=== PATIENT | male | born 1965 | race Caucasian/White ===

== ENCOUNTER → 2017-08-04 18:08 | Outpatient (CLI) | payer SELFPAY | PROVIDERS: PCP Nurse Practitioner Family; Visit Provider Nurse Practitioner Family | DX: Z02.4 Encounter for examination for driving license (principal) ==

== ENCOUNTER → 2019-03-18 10:46 | Outpatient (CLI) | payer SELFPAY | PROVIDERS: Visit Provider Nurse Practitioner Family | DX: Z02.4 Encounter for examination for driving license (principal) ==

== ENCOUNTER 2019-11-19 13:58 | Emergency (ER) | payer OTHER, SELFPAY ==
[2019-11-19 14:19] VITALS: BP 168/112; PULSE 101; RESP 20; TEMP 36.8; O2SAT 97; BMI 35.2
--- NOTE | 2019-11-19 14:26 | HMH.EDUTC ---
[facility] [place] Disposition Condition on Discharge: Good Time of Disposition: 14:38 <Carla Garcia - Last Filed: 11/19/19 15:50> <Owen Brian - Last Filed: 11/19/19 16:17> Clinical Impression: Lethargy Disposition: Home, Self-Care Prescriptions: Cholecalciferol (Vitamin D3) [Decara] 50,000 unit PO WEEKLY 28 Days #4 cap Transmission Status: Pending to [facility] Losartan Potassium 100 mg PO DAILY 30 Days #30 tab Transmission Status: Pending to [facility] methylPREDNISolone [Medrol 4mg tab] 4 mg PO DIRECTED #21 tab Transmission Status: Pending to [facility] Referrals: PCPCorinne [Primary Care Provider] - Medical Decision Making - Bubba Inquiry Pt receiving controlled substance: Corinne Mac was queried for this patient: No - Lab Data Result diagrams: 11/19/19 14:35 11/19/19 14:35 <GarciaCarla sierra - Last Filed: 11/19/19 15:50> - Lab Data Result diagrams: 11/19/19 14:35 11/19/19 14:35 <Owen Brian - Last Filed: 11/19/19 16:17> Vital Signs: 11/19/19 14:19 11/19/19 14:41 Temperature 98.3 F 98.4 F Temperature Source Oral Oral Pulse Rate [Right Brachial] 101 H 91 H Respiratory Rate 20 17 Blood Pressure [Right Arm] 168/112 H 151/98 H Blood Pressure Mean [Right Arm] 130 115 Blood Pressure Source [Right Arm] Automatic Cuff Blood Pressure Position [Right Arm] Sitting 02 Sat by Pulse Oximetry 97 98 Oxygen Delivery Method Room Air - Lab Data Lab Results 11/19/19 14:32: Free T4 0.93 11/19/19 14:35: WBC 8.6, RBC 5.77, Hgb 17.1, Hct 50.5, MCV 87.5, MCH 29.7, MCHC 33.9, RDW 14.0, Plt Count 328, MPV 8.0, Neut % (Auto) 58.3, Lymph % (Auto) 29.6, [place] % (Auto) 6.5, Eos % (Auto) 4.6, Baso % (Auto) 1.0, Neut # (Auto) 5.0, Lymph # (Auto) 2.5, [place] # (Auto) 0.6, Eos # (Auto) 0.4, Baso # (Auto) 0.1 11/19/19 14:35: Sodium 141, Potassium 4.3, Chloride 109 H, Carbon Dioxide 22, Anion Gap 14.3, BUN 13, Creatinine 0.90, Estimated Creat Clear 159, Estimated GFR 89, Est GFR ( Amer) 107, Glucose 112 H, Calcium 9.9, Total Bilirubin 0.4, AST 75 H, ALT 86 H, Alkaline Phosphatase 106, Total Protein 8.3 H, Albumin 4.2, Globulin 4.1 H, Albumin/Globulin Ratio 1.0 L 11/19/19 14:35: Plasma/Serum Alcohol < 10 11/19/19 14:35: TSH 1.59 Orders (Tests/Meds): ED MEDICATIONS Discontinued Medications Generic Name Dose Route Start Last Admin Trade Name Freq PRN Reason Stop Dose Admin Dexamethasone Sodium Phosphate 10 mg 11/19/19 15:28 11/19/19 15:32 Decadron 4mg/Ml 1ml Vial IV 11/19/19 15:29 10 mg ONCE ONE Administration Sodium Chloride 1,000 mls @ 999 mls/hr 11/19/19 14:45 11/19/19 15:32 Sod Chlor 0.9% 1000ml Bag IV 11/19/19 15:45 999 mls/hr .Q1H1M GRACIELA Administration ORDERS Category Date Time Status Coronavirus 19 Swab (OUTPT) Routine Lab 11/19/19 15:05 Received Drug Screen,Urine Stat Lab 11/19/19 14:39 Ordered Urinalysis and Microscopic Stat Lab 11/19/19 14:39 Ordered Medical Decision Narrative: Patient reports feeling off in his head, reports that he has been having a hard time staying awake and when episode occurs his vision gets blurry and then goes black and he thinks he is falling asleep State that 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 States that he has continued to have similar episodes over the weekend and had to call off work yesterday and today and had another episode this morning so he come in to get checked Discussed with patient and recommended transfer to the ED for further work up and evaluation patient denies chest pain, denies shortness of breath and state that symptoms started and first occurred on Monday Patient agreed to transfer and patient moved to ED room 5 report given to Giselle RN and patient moved to room 5 without complications or reactions (Carla Garcia) Patient responded well to fluid bolus and also Decadr
--- NOTE | 2019-11-19 14:39 | CT_ITS ---
PROCEDURE: CT HEAD/BRAIN WO CON CLINICAL INDICATION: fatigue Lethargy, fatigue, low-grade fever COMPARISON: No exams were available for comparison TECHNIQUE: Axial images obtained. All CT scans at the facility use one or more dose reduction, viz: automated exposure control, ma/kV adjustment per patient size (including targeted exams where dose is matched to indication, i.e. head), or iterative reconstruction technique. FINDINGS: No midline shift, mass effect, intracranial hemorrhage, hydrocephalus, or extra-axial fluid collection is evident. The calvarium has an unremarkable appearance. Fluid is present in the right mastoid sinus with a few air-fluid levels. No sinus air-fluid level. IMPRESSION: 1. No acute intracranial findings. 2. Right mastoid sinus disease Dictated b Darryl Julio MD 11/19/2019 15:26 Darryl Julio MD in [place] 11/19/2019 15:26
--- NOTE | 2019-11-19 14:39 | XR_ITS ---
PROCEDURE: XR CHEST 2V CLINICAL HISTORY: fatigue Cough and fatigue COMPARISON: No exams were available for comparison FINDINGS: The cardiomediastinal silhouette and pulmonary vascularity are within normal limits. The lungs are clear without infiltrates, suspicious nodules, or pleural effusions. No acute bony abnormalities. IMPRESSION: No acute findings. Dictated b Darryl Julio MD 11/19/2019 15:47 Darryl Julio MD in [place] 11/19/2019 15:47
[2019-11-19 14:41] VITALS: BP 151/98; PULSE 91; RESP 17; TEMP 36.9; O2SAT 98; BMI 34.9
[2019-11-19 14:53] LABS: Basophils # 0.1 K/mm3 (0-0.2); Eosinophils # 0.4 K/mm3 (0.0-0.4); Eosinophils % 4.6 % (0.1-12.0); Hematocrit 50.5 % (42.0-52.0); Hemoglobin 17.1 g/dL (14.1-18.0); Lymphocytes # 2.5 K/mm3 (0.7-4.5); Lymphocytes % 29.6 % (10-50); Mean Corpuscular HGB Conc 33.9 g/dL (31.8-35.4); Mean Corpuscular Hemoglobin 29.7 pg (27.0-31.2); Mean Corpuscular Volume 87.5 fl (80-94); Monocytes # 0.6 K/mm3 (0.1-1.0); Monocytes % 6.5 % (1.7-9.3); Neutrophils % 58.3 % (37.0-80.0); Platelet Count 328 K/mm3 (142-424); Red Blood Count 5.77 M/mm3 (4.60-6.20); White Blood Count 8.6 K/mm3 (4.8-10.8)
[2019-11-19 14:58] LABS: Chloride 109 mmol/L (98-107); Potassium 4.3 mmoL/L (3.5-5.1); Sodium 141 mmol/L (136-145)
[2019-11-19 15:00] LABS: Alanine Aminotransferase 86 U/L (12-78); Aspartate Amino Transferase 75 U/L (17-59); Blood Urea Nitrogen 13 mg/dl (9-20); Creatinine Clearance Estimated 159 mL/min (50-200); Estimated Glomerular Filt Rate 89 ml/min (>60); GFR (African American) 107 ML/MIN (>60)
[2019-11-19 15:01] LABS: Albumin Level 4.2 g/dl (3.5-5.0); Alkaline Phosphatase 106 U/L (38-126); Anion Gap 14.3 mEq/L (5-15); Bilirubin,Total 0.4 mg/dl (0.2-1.3); Calcium 9.9 mg/dl (8.4-10.2); Carbon Dioxide 22 mmol/L (22.0-30.0); Globulin 4.1 g/dL (1.3-3.2); Glucose 112 mg/dl (74-100); Total Protein,Serum 8.3 g/dl (6.3-8.2)
[2019-11-19 15:03] LABS: Ethyl Alcohol < 10 mg/dl (0-10)
[2019-11-19 15:56] LABS: Free T4 (Free Thyroxine) 0.93 ng/dl (0.78-2.19)
[2019-11-19 16:07] LABS: Thyroid Stimulating Hormone 1.59 uIU/mL (0.465-4.68)
[2019-11-19 16:34] VITALS: BP 152/85; PULSE 87; RESP 17; TEMP 36.8; O2SAT 100
== END 2019-11-19 16:34 | disposition home or self-care (01) ==
LOC: UTC 14:02 → ER 14:19
PROVIDERS: Emergency Provider Family Medicine
DX: R42 Dizziness and giddiness (principal); Z20.828 Contact with and (suspected) exposure to other viral communicable diseases; E78.5 Hyperlipidemia, unspecified; I10 Essential (primary) hypertension; F17.210 Nicotine dependence, cigarettes, uncomplicated; Z79.899 Other long term (current) drug therapy
CPT/HCPCS: 70450; 71046; 80053; 84439; 84443; 85025; 96365; 96375; 99284; U0003

== ENCOUNTER → 2019-12-11 10:51 | Outpatient (CLI) | payer OTHER, SELFPAY | PROVIDERS: PCP Nurse Practitioner Family; Visit Provider Urology | DX: R07.89 Other chest pain (principal); R42 Dizziness and giddiness; R55 Syncope and collapse; R00.2 Palpitations; R53.83 Other fatigue; R60.0 Localized edema; R79.89 Other specified abnormal findings of blood chemistry; Z72.0 Tobacco use | CPT/HCPCS: 93270 ==

== ENCOUNTER → 2019-12-25 10:00 | Outpatient (CLI) | payer OTHER, SELFPAY ==
--- NOTE | 2019-12-25 | CA_ITS ---
APPROVED REPORT Exam: Pharmacologic Technologist: Nancy Pedraza, Ht: 6 ft 0 in Wt: 258 lbs BSA: 2.37 m2 HR: 74 bpm BP: 163/93 mmHg Indications: Palpitations, SOB, Dizziness, Syncope Medical History Medications: Vitamin D3,,,,, Losartan,,,,, Simvasatin,,,,, Omepazole,,,,, Stress Test Details Test: LEXISCAN HR Resting HR: 80 bpm Max Heart Rate (APMHR): 168 bpm Max HR Achieved: 101 bpm Target HR (85% APMHR): 142 bpm % of APMHR: 60 Recovery HR: 82 bpm BP Resting BP: 163/93 mmHg Max BP: 163/93 mmHg Recovery BP: 155.0/89.0 mmHg ECG Clinical Exercise duration: 04:00 min Highest Stage Achieved: Exercise capacity: 1.0 METs Stress ECG Conclusion Resting EKG: NSR, incomplete RBBB, RAD, PVC Symptoms: SOA, malaise, mild stomach discomfort Arrhythmias/Ectopy: None ST-T Changes: No significant changes Conclusion: Unremarkable Lexiscan stress, Myoview images reported separately Test Summary REST . . . . . . . Resting REST 03:12 . . 80 . 163/ 93 . . Stage 1 . . . . . . . Myoview Injected Stage 1 01:00 . . 101 . . . . Stage 2 01:00 . . 95 . 144/ 94 . . Stage 3 01:00 . . 92 . 159/ 92 . . Stage 4 01:00 . . 89 . 146/ 92 . Stop exercise at 04:00 RECOVERY 01:00 . . 83 . . . . RECOVERY 02:00 . . 83 . 138/ 93 . . RECOVERY 03:00 . . 82 . 155/ 89 . . RECOVERY 03:21 . . 82 . 155/ 89 . . Electronically signed by : Nakul Retana, 12/26/2019 13:25:49
--- NOTE | 2019-12-25 10:04 | CA_ITS ---
APPROVED REPORT EXAM: Comprehensive 2D, Doppler, and color-flow Echocardiogram Brazer Crawler Torch: Hannah Guzman RT(R) Ht: 6 ft 0 in Wt: 250lbs BSA: 2.34 BP: 137/94 mmHg Indications: CP, dizziness, palpitations, HTN, ARCHULETA, obesity 2D Dimensions LVOT 2.00 cm (M/F) 1.5-2.5 M-Mode Dimensions RVDd 2.50 cm (0.9-2.6) LA Diam 3.40 cm (1.9-4.0) LVDd 5.10 cm (3.5-5.7) Ao Diam 3.50 cm (2.0-3.7) LVDs 4.00 cm (3.5-5.7) AV Cusp 1.80 cm (1.5-2.6) IVSd 1.50 cm (0.6-1.1) PWd 1.10 cm (0.6-1.1) EF (Teich) 43.50% FS 21.60% EDV (Teich) 124.00 mL ESV (Teich) 70.00 mL LV Diastology E/A Ratio 0.8 MED E' 5.85 (< 7 cm/sec) E'/MED E' Ratio 12.10 (>14) LAT E' 8.38 (<10 cm/sec) E/LAT E' Ratio 8.40 (>14) Mitral Valve MV E Max Hair. 70.60 (40-130 cm/s) MV A Velocity 93.80 (40-130 cm/s) E/A Ratio 0.80 Left Ventricle Left atrium is mildly enlarged, left ventricle is normal size, mild concentric left ventricular hypertrophy, visually estimated ejection fraction 55% with no regional wall motion abnormality, grade 1 diastolic dysfunction seen with tissue Doppler evidence of raise left atrial pressure. Right Ventricle Right atrium and right ventricle are mildly enlarged with normal contractility. Aortic Valve Aortic valve is minimally thickened and fibrosed, there is no aortic stenosis or aortic insufficiency. Mitral Valve Mitral valve is grossly normal, there is mild mitral regurgitation. Tricuspid Valve Tricuspid valve is grossly normal, there is mild tricuspid regurgitation, tricuspid regurgitation jet velocity is inadequate for calculation of the right ventricular systolic pressure. Pulmonic Valve Pulmonic valve is poorly visualized. Great Vessels Aortic root is normal size. Pericardium Trivial pericardial effusion noted Conclusion 1. Normal left ventricular size, preserved left ventricular systolic function, visually estimated ejection fraction 55% with no regional wall motion abnormality, grade 1 diastolic dysfunction seen with tissue Doppler evidence of raise left atrial pressure. 2. Mildly enlarged right ventricle with normal contractility. 3. Mild mitral and tricuspid regurgitation. 4. Trivial pericardial effusion noted. Electronically signed by : Nakul Retana, 12/26/2019 15:45:14
--- NOTE | 2019-12-25 10:04 | CA_ITS ---
APPROVED REPORT Casting Sorter: Naty Siddiqui RVT Laterality: Bilateral Study Quality: Good Indications: cp/palps/syncope, Dizziness and Vertigo Risk Factors Hypertension: Smoking Doppler Spectral Velocity Analysis ECA (R) 100.00/17.80 cm/s ECA (L) 73.30/17.00 cm/s dICA (R) 70.40/26.70 cm/s dICA (L) 66.00/25.20 cm/s Tyrone (R) 67.90/25.40 cm/s Tyrone (L) 62.30/26.90 cm/s pICA (R) 62.80/20.90 cm/s pICA (L) 57.10/24.90 cm/s dCCA (R) 114.00/26.70 cm/s dCCA (L) 84.90/21.20 cm/s pCCA (R) 119.00/29.90 cm/s pCCA (L) 128.00/39.30 cm/s Vert (R) 33.80/14.90 cm/s Vert (L) 49.70/13.30 cm/s Subcl. 124.00/ cm/s Subl. (L) 84.50/ cm/s ICA/CCA 0.62 ICA/CCA 0.78 Findings Study suggests less than 20% stenosis of the right internal cartoid artery. study suggests less than 20% stenosis of the left internal cartoid artery. Antegrade flow seen bilateral vertebral arteries. Conclusion Study suggests less than 20% stenosis of the right internal cartoid artery. study suggests less than 20% stenosis of the left internal cartoid artery. Antegrade flow seen bilateral vertebral arteries. Electronically signed by : Darryl Julio MD 12/25/2019 17:04:40
--- NOTE | 2019-12-25 11:07 | NM_ITS ---
APPROVED REPORT Exam: Nuclear Stress Test Indication: Dizziness, HTN, High cholesterol, Tobacco use, Family history Patient Location: Outpatient [place] Tech:GABRIELLE Gregory, RT (R)(N) Ht: 5 ft 11 in Wt: 250 lbs HR: 74 bpm BP: 163/93 mmHg BSA: 2.32 m2 BMI: 34.8 History: Dizziness, HTN, High cholesterol, Tobacco use, Family history Procedure: Patient received a 0.4 mg of intravenous Lexiscan, resting heart rate 74 bpm, resting blood pressure 163/93 mmHg, with Lexiscan maximum heart rate achived was 99 bpm which is Then 85 % of the maximum predicted heart rate and blood pressure was 144/94 mmHg. With Lexiscan, patient denied any complaint of chest pain. Electrocardiogram Resting electrocardiogram showed sinus rhythm right ventricular conduction delay, with Lexiscan there is less than 1.[address] segment depression noted from the baseline EKG. The EKG portion of the Lexiscan Myoview is nondiagnostic. Cardiac Stress and Resting SPECT Images: Cardiac Stress and Resting SPECT images were obtained using technetium 99m Myoview 31.1 mCi stress and 10.81 mCi at rest. Gated SPECT for analysis of segmental wall motion and calculation of the ejection fraction also done. Cardiac stress and resting SPECT images show fixed defect involving the posterolateral wall with normal korey gated SPECT is likely secondary to soft tissue attenuation, no reversible ischemia seen. Computer derived ejection fraction is 58% with no regional wall motion abnormality, right ventricle is normal size and contractility. Conclusion: 1. The EKG portion of the Lexiscan is nondiagnostic. 2. Scintigraphic evidence of fixed defect involving the posterolateral wall with normal contractility on gated SPECT is likely secondary to soft tissue attenuation, computer derived ejection fraction is 58% with no regional wall motion abnormality, right ventricle is normal size and contractility. 3. Likely normal Lexiscan Myoview study. Electronically signed by : Nakul Retana, 12/26/2019 13:38:58
--- NOTE | 2019-12-25 13:36 | HMH.ITSHM ---
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 []SIMVASTATIN OMEPRAZOLE LOSARTAN VITAMIN D
== END ==
PROVIDERS: PCP Nurse Practitioner Family; Visit Provider Urology
DX: R00.2 Palpitations (principal); R07.89 Other chest pain; R42 Dizziness and giddiness; R53.83 Other fatigue; R55 Syncope and collapse; R60.0 Localized edema; R79.89 Other specified abnormal findings of blood chemistry; Z72.0 Tobacco use
CPT/HCPCS: 78452; 93017; 93306; 93880; A9502; J2785

== ENCOUNTER → 2019-12-30 14:48 | Outpatient (CLI) | payer OTHER, SELFPAY | PROVIDERS: PCP Nurse Practitioner Family; Visit Provider Urology | DX: R07.89 Other chest pain (principal); R55 Syncope and collapse; R79.89 Other specified abnormal findings of blood chemistry; R42 Dizziness and giddiness; R53.83 Other fatigue; R00.2 Palpitations; R60.0 Localized edema | CPT/HCPCS: 95806 ==

== ENCOUNTER 2020-09-07 11:55 | Emergency (ER) | payer OTHER, SELFPAY ==
[2020-09-07 12:00] VITALS: BP 146/95; PULSE 91; RESP 21; TEMP 37.2; O2SAT 96; BMI 35.2
--- NOTE | 2020-09-07 12:45 | HMH.EDUTC ---
[facility] [place] Disposition Clinical Impression: Bronchitis Sinusitis Qualifiers: Sinusitis location: unspecified location Chronicity: acute Recurrence: non-recurrent Qualified Code(s): J01.90 - Acute sinusitis, unspecified Disposition: Home, Self-Care Condition on Discharge: Good Instructions: DI for Sinusitis, DI for Acute Bronchitis Additional Instructions: Drink plenty of fluids. Take tylenol or ibuprofen for pain or fever. Take the medications as directed. Follow up with your regular doctor. GO TO THE ER FOR ANY WORSENING SYMPTOMS Prescriptions: predniSONE [Prednisone 20mg Tab] 20 mg PO BID 4 Days #8 tab Transmission Status: Received by [id number] Benzonatate [Tessalon Perle 100mg Cap] 100 mg PO TIDP PRN #30 cap PRN Reason: Cough Transmission Status: Received by [facility] Azithromycin [Z-Scott 250mg Tab*] 250 mg PO UD DOSE PK #6 tab Transmission Status: Received by [facility] Referrals: Romulo Velez MD [Primary Care Provider] - Forms: Work/School Release Time of Disposition: 12:55 Medical Decision Making - Medical Records Medical records reviewed: No: I reviewed the patient's medical records. - Bubba Inquiry Pt receiving controlled substance: No Vital Signs: 09/07/20 12:00 09/07/20 13:05 Temperature 99.0 F 99.0 F Temperature Source Oral Pulse Rate 91 H Pulse Rate [Left Brachial] 91 H Respiratory Rate 21 21 Blood Pressure 146/95 H Blood Pressure [Left Arm] 146/95 H Blood Pressure Mean [Left Arm] 112 Blood Pressure Source [Left Arm] Automatic Cuff Blood Pressure Position [Left Arm] Sitting 02 Sat by Pulse Oximetry 96 Oxygen Delivery Method Room Air [facility] [place] HPI - General Stated complaint: fever, congestion, Time Seen by Provider: 09/07/20 12:45 Mode of Arrival: Ambulatory Source of Information: Patient Limitations: No Limitations Description of Symptoms (Recalled from Triage Doc. by RN): PATIENT C/O HEAD CONGESTION, COUGH, FEVER, AND STOPPED UP EARS X 2 DAYS HEENT Symptoms (Recalled from RN notes): Yes Resp Symptoms (Recalled from RN notes): No Skin Symptoms (Recalled from RN notes): No MS Symptoms (Recalled from RN notes): No Functional Status (Recalled from RN notes): WNL - History of Present Illness Provider Complaint: He c/o sinus and chest congestion for the past 3 days. He denies any fever/chills/body aches. He usually gets a sinus infection every spring and that is what he thinks is going on now. - Related Data Home Medications Medication Instructions Recorded Confirmed simvastatin 10 mg tablet 10 mg PO QHS 12/11/19 12/30/19 Previous Rx's Medication Instructions Recorded omeprazole 40 mg capsule,delayed 40 mg PO DAILY #90 cap 10/28/19 release Cholecalciferol (Vitamin D3) 50,000 unit PO WEEKLY 28 Days #4 11/19/19 [Decara] cap Losartan Potassium 100 mg PO DAILY 30 Days #30 tab 11/19/19 metoprolol succinate 50 mg 50 mg PO DAILY #30 tab 01/20/20 tablet,extended release 24 hr Azithromycin [Z-Scott 250mg Tab*] 250 mg PO UD DOSE PK #6 tab 09/07/20 Benzonatate [Tessalon Perle 100mg 100 mg PO TIDP PRN #30 cap 09/07/20 Cap] predniSONE [Prednisone 20mg 20 mg PO BID 4 Days #8 tab 09/07/20 Tab] Allergies Allergy/AdvReac Type Severity Reaction Status Date / Time No Known Allergies Allergy Verified 01/20/20 13:14 - Worker's Comp Is this a Worker's Comp case?: No [facility] History - Hepatitis A Screen Drug use history?: No High risk sexual behaviors?: No History of sexually transmitted infection?: No Currently employed?: No Childcare worker?: No Do you have indoor plumbing?: Yes Do you have electricity?: Yes Attestation statement:: This patient has been screened for Hepatitis A risk factors. I have reviewed the patient's past medical history: Yes Medical History: Reports:: Deep Vein Thrombosis, Gastroesophageal Reflux Disease(GERD), Hyperlipidemia, Hypertension Other Surgeries: Yes: No Previous
[2020-09-07 13:05] VITALS: BP 146/95; PULSE 91; RESP 21; TEMP 37.2; O2SAT 96
== END 2020-09-07 13:10 | disposition home or self-care (01) ==
PROVIDERS: Emergency Provider Nurse Practitioner Family; PCP Family Medicine
DX: J01.90 Acute sinusitis, unspecified (principal)
CPT/HCPCS: 99202; G0463

== ENCOUNTER 2021-01-10 12:34 | Emergency (ER) | payer OTHER, SELFPAY ==
[2021-01-10 12:35] VITALS: BP 153/95; PULSE 97; RESP 18; TEMP 36.7; O2SAT 95; BMI 33.9
--- NOTE | 2021-01-10 12:48 | HMH.EDGENADL ---
ED Disposition Clinical Impression: Acute kidney injury, Kidney stone Disposition: Home, Self-Care Condition on Discharge: Good Instructions: Kidney Stones -- Adult Additional Instructions: Return to the emergency department with new, changing, or worsening symptoms. Please follow-up with your primary care doctor in the next 1 to 2 days. You need to have a lab rechecked to evaluate your kidney function. You also need to follow-up with urology for your kidney stone. Please continue to take Flomax as written. You have also been given a prescription for oxycodone for 1 day for pain. Prescriptions: Oxycodone HCl [Oxycodone 5mg tab (IR)] 5 mg PO Q8H #5 tab Transmission Status: Received by [id number] Referrals: Bambi Veloz APRN [Primary Care Provider] - Arron Yee MD [Staff Physician] - Time of Disposition: 14:32 - Critical Care Critical Care Time: No Attestation: On , the high probability of a clinically significant, sudden or life threatening deterioration of the following system(s) required my full and direct attention, intervention and personal management. The time I documented below is in addition to time spent performing reported procedures but includes the following listed in this critical care notation. Medical Decision Making - Medical Records Medical records reviewed: Yes: I reviewed the patient's medical records. - Bubba Inquiry Pt receiving controlled substance: No Vital Signs: 01/10/21 12:35 01/10/21 13:31 01/10/21 14:01 Temperature 98.0 F Temperature Source Oral Pulse Rate 85 80 Pulse Rate [Right Radial] 97 H Respiratory Rate 18 Blood Pressure 122/85 119/75 Blood Pressure [Right Arm] 153/95 H Blood Pressure Mean [Right Arm] 114 Blood Pressure Source Automatic Cuff Blood Pressure Source [Right Arm] Automatic Cuff Blood Pressure Position Sitting Blood Pressure Position [Right Arm] Sitting 02 Sat by Pulse Oximetry 95 90 L 92 L Oxygen Delivery Method Room Air Room Air Room Air 01/10/21 14:45 Temperature 98.0 F Temperature Source Oral Pulse Rate 73 Pulse Rate [Right Radial] Respiratory Rate 18 Blood Pressure 126/89 Blood Pressure [Right Arm] Blood Pressure Mean [Right Arm] Blood Pressure Source Blood Pressure Source [Right Arm] Blood Pressure Position Sitting Blood Pressure Position [Right Arm] 02 Sat by Pulse Oximetry Oxygen Delivery Method Room Air - Lab Data Lab Results 01/10/21 12:46: Urine Color Yellow, Urine Appearance Clear, Urine pH 5.5, Ur Specific [place] >= 1.030, Urine Protein Negative, Urine Glucose (UA) Negative, Urine Ketones Negative, Urine Blood Trace-i, Urine Nitrate Negative, Urine Bilirubin Negative, Urine Urobilinogen 1.0, Ur Leukocyte Esterase Negative, Urine RBC Occasional, Urine WBC None, Ur Squamous Epith Cells Occasional, Urine Bacteria None 01/10/21 12:50: WBC 11.1 H, RBC 5.72, Hgb 16.8, Hct 51.4, MCV 89.8, MCH 29.3, MCHC 32.6, RDW 13.9, Plt Count 297, MPV 8.1, Neut % (Auto) 67.7, Lymph % (Auto) 22.8, [place] % (Auto) 5.1, Eos % (Auto) 3.1, Baso % (Auto) 1.4, Neut # (Auto) 7.5, Lymph # (Auto) 2.5, [place] # (Auto) 0.6, Eos # (Auto) 0.3, Baso # (Auto) 0.2 01/10/21 12:50: Sodium 141, Potassium 4.1, Chloride 109 H, Carbon Dioxide 23, Anion Gap 13.1, BUN 14, Creatinine 1.40 H, Estimated Creat Clear 98, Estimated GFR 53 L, Est GFR ( Amer) 64, Glucose 115 H, Calcium 9.1, Total Bilirubin 0.3, AST 35, ALT 40, Alkaline Phosphatase 98, Total Protein 7.9, Albumin 4.2, Globulin 3.7 H, Albumin/Globulin Ratio 1.1, Lipase 63 Result diagrams: 01/10/21 12:50 01/10/21 12:50 Orders (Tests/Meds): ED MEDICATIONS Discontinued Medications Generic Name Dose Route Start Last Admin Trade Name Freq PRN Reason Stop Dose Admin Sodium Chloride 1,000 mls @ 999 mls/hr 01/10/21 13:00 01/10/21 13:25 Sod Chlor 0.9% 1000ml Bag IV 01/10/21 14:00 999 mls/hr .Q1H1M GRACIELA Administration Ketorolac Tromethamine 15 mg
--- NOTE | 2021-01-10 12:51 | CT_ITS ---
PROCEDURE INFORMATION: Exam: CT Abdomen And Pelvis Without Contrast Exam date and time: 01/10/2021 12:51 PM Age: 55 years old Clinical indication: Abdominal pain; Patient HX: Right flank pain, history of kidney stones. ; Additional info: Stone TECHNIQUE: Imaging protocol: Computed tomography of the abdomen and pelvis without contrast. Radiation optimization: All CT scans at this facility use at least one of these dose optimization techniques: automated exposure control; mA and/or kV adjustment per patient size (includes targeted exams where dose is matched to clinical indication); or iterative reconstruction. COMPARISON: CT ABDOMEN PELVIS W CON 07/15/2019 5:01 PM FINDINGS: Liver: Normal. No mass. Gallbladder and bile ducts: Normal. No calcified stones. No ductal dilation. Pancreas: Normal. No ductal dilation. Spleen: Normal. No splenomegaly. Adrenal glands: Normal. No mass. Kidneys and ureters: 2.9 millimeter distal RIGHT ureteral calculus causes dilatation of the RIGHT ureter, and RIGHT collecting system. The RIGHT kidney is edematous and there is RIGHT perirenal stranding. Stomach and bowel: Diverticulosis of the rectosigmoid. No diverticulitis. No obstruction Appendix: Normal appendix Intraperitoneal space: Unremarkable. No free air. No significant fluid collection. Vasculature: Unremarkable. No abdominal aortic aneurysm. Lymph nodes: Unremarkable. No enlarged lymph nodes. Urinary bladder: Unremarkable as visualized. Reproductive: Unremarkable as visualized. Bones/joints: Unremarkable. No acute fracture. Soft tissues: Unremarkable. IMPRESSION: 2.9 millimeter distal RIGHT ureteral calculus causes dilatation of the RIGHT ureter, and RIGHT collecting system. The RIGHT kidney is edematous and there is RIGHT perirenal stranding.
[2021-01-10 12:57] LABS: Microscopic, Urine URINE MICROSCOPIC (MICROSCOPIC)
[2021-01-10 12:59] LABS: Appearance,Urine CLEAR (Clear); Bilirubin,Urine Negative (Negative); Blood, Urine TRACE-I (Negative); Color,Urine YELLOW (Yellow); Glucose,Urine (UA) Negative (Negative); Ketones,Urine Negative (Negative); Leukocyte Esterase,Urine Negative (Negative); Nitrate,Urine Negative (Negative); PH,Urine 5.5 (5.0-8.5); Protein,Urine Negative (Negative); Specific Gravity, Urine >= 1.030 (1.005-1.030)
[2021-01-10 13:05] LABS: Basophils # 0.2 K/mm3 (0-0.2); Basophils % 1.4 % (0.1-2.0); Eosinophils # 0.3 K/mm3 (0.0-0.4); Eosinophils % 3.1 % (0.1-12.0); Hematocrit 51.4 % (42.0-52.0); Hemoglobin 16.8 g/dL (14.1-18.0); Lymphocytes # 2.5 K/mm3 (0.7-4.5); Lymphocytes % 22.8 % (10-50); Mean Corpuscular HGB Conc 32.6 g/dL (31.8-35.4); Mean Corpuscular Hemoglobin 29.3 pg (27.0-31.2); Mean Corpuscular Volume 89.8 fl (80-94); Mean Platelet Volume 8.1 fl (7.4-10.4); Monocytes # 0.6 K/mm3 (0.1-1.0); Monocytes % 5.1 % (1.7-9.3); Neutrophils # 7.5 K/mm3 (1.8-7.8); Neutrophils % 67.7 % (37.0-80.0); Platelet Count 297 K/mm3 (142-424); Red Blood Count 5.72 M/mm3 (4.60-6.20); Red Cell Distribution Width 13.9 % (11.5-17.5); White Blood Count 11.1 K/mm3 (4.8-10.8)
[2021-01-10 13:08] LABS: Chloride 109 mmol/L (98-107); Potassium 4.1 mmoL/L (3.5-5.1); Sodium 141 mmol/L (136-145)
[2021-01-10 13:10] LABS: Alanine Aminotransferase 40 U/L (12-78); Aspartate Amino Transferase 35 U/L (17-59); Blood Urea Nitrogen 14 mg/dl (9-20); Creatinine Clearance Estimated 98 mL/min (50-200); Estimated Glomerular Filt Rate 53 ml/min (>60); GFR (African American) 64 ML/MIN (>60)
[2021-01-10 13:10] LABS: RBC,Urine Occasional #/hpf (0-3); Squamous Epithelial Cell,Urine Occasional #/hpf (0-5)
[2021-01-10 13:11] LABS: Albumin Level 4.2 g/dl (3.5-5.0); Albumin/Globulin Ratio 1.1 (1.1-1.8); Alkaline Phosphatase 98 U/L (38-126); Anion Gap 13.1 mEq/L (5-15); Bilirubin,Total 0.3 mg/dl (0.2-1.3); Calcium 9.1 mg/dl (8.4-10.2); Carbon Dioxide 23 mmol/L (22.0-30.0); Globulin 3.7 g/dL (1.3-3.2); Glucose 115 mg/dl (74-100); Lipase 63 U/L (23-300); Total Protein,Serum 7.9 g/dl (6.3-8.2)
[2021-01-10 13:31] VITALS: BP 122/85; PULSE 85; O2SAT 90
[2021-01-10 14:01] VITALS: BP 119/75; PULSE 80; O2SAT 92
[2021-01-10 14:45] VITALS: BP 126/89; PULSE 73; RESP 18; TEMP 36.7; O2SAT 92
== END 2021-01-10 14:45 | disposition home or self-care (01) ==
PROVIDERS: Emergency Provider Emergency Medicine; PCP Nurse Practitioner Family
DX: N17.9 Acute kidney failure, unspecified (principal); N20.0 Calculus of kidney; Z87.442 Personal history of urinary calculi; K21.9 Gastro-esophageal reflux disease without esophagitis; E78.5 Hyperlipidemia, unspecified; I10 Essential (primary) hypertension; F17.210 Nicotine dependence, cigarettes, uncomplicated; Z79.899 Other long term (current) drug therapy
CPT/HCPCS: 74176; 80053; 81001; 83690; 85025; 96365; 96375; 99283; J2405

== ENCOUNTER 2021-10-01 08:38 | Emergency (ER) | payer OTHER, SELFPAY ==
[2021-10-01 08:40] VITALS: BP 156/91; PULSE 95; RESP 20; TEMP 36.8; O2SAT 97; BMI 33.9
--- NOTE | 2021-10-01 09:00 | XR_ITS ---
FINAL REPORT TECHNIQUE: 3 views CLINICAL HISTORY: low back pain FINDINGS: There is no fracture present. There is no malalignment. Levoscoliosis is noted. There is mild degenerative change with osteophytes. IMPRESSION: Degenerative change with no acute process. Reviewed, Interpreted and Dictated by Ky Gilliland III, MD Transcribed by Kerri Hansen Authenticated and [facility]
--- NOTE | 2021-10-01 09:02 | HMH.EDGENADL ---
ED Disposition Clinical Impression: Strain of lumbar region Qualifiers: Encounter type: initial encounter Qualified Code(s): S39.012A - Strain of muscle, fascia and tendon of lower back, initial encounter Disposition: Home, Self-Care Condition on Discharge: Good Instructions: DI for Low Back Pain Additional Instructions: Prednisone, Flexeril, [place] as prescribed. Additional instructions for BACK PAIN: See your physician as soon as possible for further evaluation. Return immediately if back pain becomes intolerable, or if fever, numbness or weakness of your legs, loss of control of your bowels or bladder. Prescriptions: Hydrocod/Acet 5/325 mg [[place] 5/325mg tablet] 1 tab PO Q6HP PRN #10 tab PRN Reason: Pain [facility] methocarbamoL [Methocarbamol] 1,500 mg PO QID #32 tab Transmission Status: [facility] predniSONE [Prednisone 20mg Tab] 20 mg PO BID #10 tab Transmission Status: [facility] Referrals: Bambi Veloz APRN [Primary Care Provider] - Forms: Work/School Release - Critical Care Critical Care Time: No Attestation: On 10/01/21, the high probability of a clinically significant, sudden or life threatening deterioration of the following system(s) required my full and direct attention, intervention and personal management. The time I documented below is in addition to time spent performing reported procedures but includes the following listed in this critical care notation. Medical Decision Making - Bubba Inquiry Pt receiving controlled substance: Yes Bubba was queried for this patient: Yes Risks and benefits of using a controlled substance: were discussed with pt by me Vital Signs: 10/01/21 08:40 Temperature 98.3 F Temperature Source Oral Pulse Rate [Brachial] 95 H Respiratory Rate 20 Blood Pressure [Right Arm] 156/91 H Blood Pressure Mean [Right Arm] 112 Blood Pressure Source [Right Arm] Automatic Cuff Blood Pressure Position [Right Arm] Sitting 02 Sat by Pulse Oximetry 97 Orders (Tests/Meds): ORDERS Category Date Time Status XR lumbar spine 2-3V Stat Exams 10/01/21 09:00 Taken - Radiology Data #1 Image(s): L-Spine (Degenerative changes with mild osteophytes, no fracture or dislocation. Scoliosis.) Image Reviewed: Yes I reviewed the patient's radiology image, Yes I have reviewed radiologist's interpretation Medical Decision Narrative: Discussed with patient possibility of disc injury and need for follow-up with primary care provider next week if not improving. General Adult HPI - General Chief complaint: Back Pain/Injury Stated complaint: severe back pain 09/29 Time Seen by Provider: 10/01/21 09:02 Mode of Arrival: Ambulatory Limitations: No Limitations Description of Symptoms (Recalled from ER Triage Doc. by RN): PT C/O LOW BACK PAIN AFTER TWISTING AND PICKING UP GRANDCHILD. STATES HE FELT A POP PAIN HAS INCREASED SINCE INJURY. - History of Present Illness HPI narrative: Patient states that a couple of days ago he picked up his grandchild while twisting and felt a pop in his back. Since then he has lower back pain in the lower lumbar area more to the right side. Pain is getting increasingly severe. Do not feel like he can work today. He requests a note for work. 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 He has had minor back problems in the past but no known herniated disks and no prior back surgeries. Denies any radiation of pain down his legs. Denies any numbness or tingling of the legs. Denies any numbness of the groin. Denies any loss of bowel or bladder control. He is taking BC powder without relief. States he went to see his primary care provider today, but she is on vacation, therefore came to the emergency department. - Related Data Home Medications Medication Instructions Recorded Confirmed simvastatin 10 mg tablet 10 mg PO QHS 12/11/19 03/19/21 Previous Rx
--- NOTE | 2021-10-01 09:03 | PC.NURSE ---
ED MD AT BEDSIDE
--- NOTE | 2021-10-01 09:18 | PC.NURSE ---
PT TO XR
[2021-10-01 09:36] VITALS: BP 145/88; PULSE 84; RESP 20; TEMP 36.8; O2SAT 95
== END 2021-10-01 09:38 | disposition home or self-care (01) ==
PROVIDERS: Emergency Provider Emergency Medicine; PCP Nurse Practitioner Family
DX: S39.012A Strain of muscle, fascia and tendon of lower back, initial encounter (principal); X50.0XXA Overexertion from strenuous movement or load, initial encounter
CPT/HCPCS: 72100; 99283

== ENCOUNTER 2023-02-16 14:23 | Outpatient (CLI) | payer SELFPAY | END 2023-02-16 15:30 | disposition home or self-care (01) | PROVIDERS: PCP Emergency Medicine; Visit Provider Nurse Practitioner Family | DX: Z02.4 Encounter for examination for driving license (principal) ==

== ENCOUNTER 2023-06-05 09:43 | Emergency (ER) | payer BC, SELFPAY ==
[2023-06-05 09:54] VITALS: BP 168/95; PULSE 81; RESP 16; TEMP 36.5; O2SAT 98; BMI 32.5
--- NOTE | 2023-06-05 10:04 | HMH.EDGENADL ---
Discharge Plan Disposition Patient Disposition: Home, Self-Care Condition: Good Prescriptions Prescriptions: No Action metoprolol succinate 50 mg tablet extended release 24 hr 50 mg PO DAILY Qty: 30 5RF simvastatin 10 mg tablet 10 mg PO QHS omeprazole 40 mg capsule,delayed release(DR/EC) 40 mg PO DAILY Qty: 90 3RF Rx Instructions: swallow whole; do not crush, chew, dissolve, cut, break hydrocodone-acetaminophen 5-325 mg tablet 1 tab PO Q6HP PRN (Reason: Pain) Qty: 10 0RF losartan 100 MG tablet 100 mg PO DAILY 30 Days Qty: 30 3RF cholecalciferol (vitamin D3) 1,250 MCG capsule 50,000 unit PO WEEKLY 28 Days Qty: 4 3RF methocarbamol 750 MG tablet 1,500 mg PO QID Qty: 32 0RF prednisone 20 MG tablet 20 mg PO BID Qty: 10 0RF Referrals Follow up/Referrals: Bambi Veloz APRN [Primary Care Provider] - See instructions Activity Restrictions/Add. Instructions Additional Instructions/Restrictions: Based on the symptoms you are describing to me, it is likely that you are noticing your xiphoid process which is a prominence at the end of your sternum. That being said, I would recommend you take anti-inflammatories like ibuprofen throughout the day for course of 3 to 5 days, if you feel that this is changing in character or worsening or you develop new or worsening symptoms, please follow-up with your primary care doctor present to the emergency department. Clinical Impressions Clinical Impression: Chest wall discomfort Stand Alone Forms Stand Alone Forms: Work/School Release Discharge ED Provider: Germain Machado Adult [facility] General Chief complaint: PAIN Stated complaint: knot on chest, swelling Time Seen by Provider: 06/05/23 10:04 Mode of Arrival: Ambulatory Source of Information: Patient and Spouse Limitations: No Limitations Description of Symptoms (Recalled from ER Triage Doc. by RN): pt c/o a drew size lump below his sternum. pt states this has been ongoing x1wk. pt states the pain is 7/10 and sore/tender in nature. pt also c/o having frequent heart burn. pt is hesitant to answer questions, states he does not want to be poked by a needle. History of Present Illness HPI narrative: Patient presents with several days of discomfort associated with a bony prominence of the bottom of his sternum. He has not noticed this before. He denies any previous therapies today. He denies any fevers or chills or pain below this area or deeper in nature. It is dull, moderate in severity, and nonradiating. No sick contacts, no nausea or vomiting. No fevers or chills. No unintentional weight loss, no night sweats. Please note that above description of symptoms, in this electronic medical record under categorization of recalled from ER triage doctor by RN are reflective of an initial nursing assessment, however, is not reflective of my full history and physical exam that was personally taken and clarified. Consequentially, this preceding description of symptoms, which may include the patient's categorized chief complaint in the EMR, do not reflect my personal clinical impression, and the ultimate description of history of present illness and patient stated complaints should be deferred to this section of the note. Unless stated otherwise or congruent with this section of the note, additional signs, symptoms, or incongruence should be interpreted as inaccurate with my clinical impression. Related Data Home Medications Medication Instructions Recorded Confirmed simvastatin 10 mg tablet 10 mg PO QHS 12/11/19 03/19/21 Previous Rx's Medication Instructions Recorded omeprazole 40 mg capsule,delayed 40 mg PO DAILY #90 caps 10/28/19 release cholecalciferol (vitamin D3) 1,250 50,000 unit PO WEEKLY 28 days #4 11/19/19 mcg (50,000 unit) capsule caps losartan 100 mg tablet 100 mg PO DAILY 30 days #30 tabs 11/19/19 metoprolol succinate 50 mg 50 mg PO DAILY #30 tabs 01/20/20 tablet,extended release 24 hr hydrocodone 5 mg-acetaminophen 325 1 tab PO Q6HP PRN Pain #10 tabs 10/01/21 mg tablet methocarbamol 750 mg tablet 1,500 mg PO QID #32 tabs 10/01/21 prednisone 20 mg tablet 20 mg PO BID #10 tabs 10/01/21 Allergies Allergy/AdvReac Type Severity Reaction Status Date / Time No Known Allergies Allergy Verified 06/05/23 10:01 [facility] Disclaimer: The information contained in this section may have been updated after the patient was seen, as this information can be updated by other users. Medical History (Updated 06/05/23 @ 10:31 by Germain Machado MD) Abnormal EKG Social History Smoking Status: Current every day smoker tobacco type: cigarettes packs per day: 1 alcohol intake: current current occupational status: employed Travel in the last 8 weeks: None ROS Obtained: Yes Systems reviewed as appropriate & no additional complaints except as documented As per HPI Physical Exam General General appearance: alert and in no apparent distress Head Head exam: atraumatic and normocephalic Eye Eye exam: Present normal appearance Neck Neck exam: Present normal inspection Chest Chest inspection: Present normal inspection, symmetric chest wall rise and other (Patient's stated lesion congruent with xiphoid process, it is tender to palpation but within normal limits in size and character, no overlying skin lesions.) Respiratory Respiratory exam: Present normal lung sounds bilaterally; Absent respiratory distress Cardiovascular Cardiovascular exam: Present regular rate and normal rhythm Abdominal Exam Abdominal exam: Present soft Neurological Exam Neurological exam: Present alert and oriented X3 Psychiatric Psychiatric exam: Present normal affect and normal mood Skin Skin exam: Present warm and dry Medical Decision Making Medical Records Medical records reviewed: Yes I reviewed the patient's medical records. Bubba Inquiry Pt receiving controlled substance: No Vital Signs: 06/05/23 09:54 06/05/23 10:40 Temperature 97.7 F 97.7 F Temperature Source Oral Oral Pulse Rate 81 Pulse Rate [Left] 81 Respiratory Rate 16 16 Blood Pressure 132/88 Blood Pressure [Right Arm] 168/95 H Blood Pressure Mean [Right Arm] 119 Blood Pressure Source [Right Arm] Automatic Cuff Blood Pressure Position [Right Arm] Standing 02 Sat by Pulse Oximetry 98 Oxygen Delivery Method Room Air Medical Decision Narrative: Patient with history and exam per above presenting for evaluation of sternal lesion Diagnoses considered include fracture, discomfort of xiphoid process, very minimal evidence clinically to suggest ACS or pneumonia or acute pulmonary pathology, and no further workup is warranted to explore these pathologies My clinical impression at this time is most consistent with discomfort of the xiphoid process, for which patient will trial course of NSAIDs and follow-up with primary care doctor. I discussed my clinical impression with patient and answered all questions. At this time, the evidence for any other entities in the differential is insufficient to warrant any further testing or ED observation. This was explained to the patient. The patient was advised that persistent or worsening symptoms require further evaluation. I confirmed the patient's understanding of this discussion. Critical Care Critical Care Time Critical Care Time: No
[2023-06-05 10:40] VITALS: BP 132/88; PULSE 81; RESP 16; TEMP 36.5
== END 2023-06-05 10:42 | disposition home or self-care (01) ==
PROVIDERS: Emergency Provider Emergency Medicine; PCP Nurse Practitioner Family
DX: R07.89 Other chest pain (principal); F17.210 Nicotine dependence, cigarettes, uncomplicated
CPT/HCPCS: 99283

== ENCOUNTER 2024-02-03 08:22 | Outpatient (CLI) | payer BC, SELFPAY ==
[2024-02-03 09:00] LABS: Hemoglobin A1C 5.8 % (4.0-6.0)
== END 2024-02-03 23:59 | disposition home or self-care (01) ==
PROVIDERS: PCP Internal Medicine; Visit Provider Internal Medicine
DX: Z13.1 Encounter for screening for diabetes mellitus (principal)
CPT/HCPCS: 36415; 83036

== ENCOUNTER 2024-09-07 11:32 | Outpatient (CLI) | payer SELFPAY ==
--- NOTE | 2024-09-07 11:36 | XR_ITS ---
PROCEDURE INFORMATION: Exam: XR Right Hip Exam date and time: 09/07/2024 11:29 AM Age: 59 years old Clinical indication: Hip pain; Right hip TECHNIQUE: Imaging protocol: Radiologic exam of the right hip. Views: 2 or 3 views hip with pelvis when performed. AP 1 view pelvis with 2 views hip COMPARISON: CT ABDOMEN PELVIS WO CON 01/10/2021 1:01 PM FINDINGS: Bones/joints: No acute bony abnormality identified. No evidence for a joint effusion. Soft tissues: Unremarkable. Notes: Notes: If there is further concern, recommend follow-up radiographs or bone scan for complete assessment. IMPRESSION: No acute bony findings.
--- NOTE | 2024-09-07 11:36 | XR_ITS ---
PROCEDURE INFORMATION: Exam: XR Left Hip Exam date and time: 09/07/2024 11:30 AM Age: 59 years old Clinical indication: Hip pain; Left hip TECHNIQUE: Imaging protocol: Radiologic exam of the left hip. Views: 2 or 3 views hip with pelvis when performed. AP 1 view pelvis with 2 views hip COMPARISON: CT ABDOMEN PELVIS WO CON 01/10/2021 1:01 PM FINDINGS: Bones/joints: Mild generalized bony degenerative changes. Bony structures appear otherwise unremarkable. No visualized evidence for acute bony fracture or dislocation. Soft tissues: Unremarkable. Notes: Notes: If there is further concern, recommend follow-up radiographs or bone scan for complete assessment. IMPRESSION: No acute bony findings.
== END 2024-09-07 23:59 | disposition home or self-care (01) ==
LOC: RAD 11:34
PROVIDERS: PCP Internal Medicine; Visit Provider Internal Medicine
DX: M25.559 Pain in unspecified hip (principal)
CPT/HCPCS: 73502